=== PATIENT | male | born 1985 | race Caucasian/White ===

== ENCOUNTER 2024-06-27 10:32 | Outpatient (CLI) | payer OTHER, SELFPAY ==
--- NOTE | 2024-06-27 10:42 | ECG_ITS ---
Test Date: 2024-06-27 10:57:50 Measurements Intervals [place] Rate: 96 P: 42 MA: 149 QRS: 32 QRSD: 98 T: 29 QT: 349 QTc: 441 Interpretive Statements SINUS RHYTHM No previous ECG available for comparison Electronically Signed On 06-28-2024 14:20:00 CDT by Terry Costa M.D.
== END 2024-06-27 10:33 | disposition home or self-care (01) ==
PROVIDERS: Visit Provider Surgery
DX: Z01.818 Encounter for other preprocedural examination (principal); I10 Essential (primary) hypertension
CPT/HCPCS: 36415; 86850; 86900; 86901; 93005

== ENCOUNTER 2024-07-03 01:49 | Day surgery (SDC) | payer OTHER, SELFPAY ==
--- NOTE | 2024-06-25 16:32 | SUR.PREOP ---
Report to the Outpatient Waiting Room, entrance under the green pavilion located off [facility], at time ___0800____ on date ____07/03/24___. Planned Procedure Time: ____999____. Time changes happen often and if your time is changed the preop area will call you the afternoon before. - You and your visitor will be asked to self-screen and do not enter if you have any COVID symptoms. - A mask is optional within the hospital at this time. Patients may have clear liquids (water, carbonated beverages, clear teas, apple juice) until 3 hours prior to surgery with a maximum of 20 ounces. - NO CLEAR LIQUIDS AFTER 0700 - No food from midnight until time of surgery - Infants may have breast milk until 4 hours before surgery, infant formula 6 hours prior to surgery. - Children will be allowed to drink immediately following surgery. If applicable, please bring a bottle or sippy cup to assist with drinking. Juice, water, soda, and popsicles are readily available. For infants on formula, please bring formula the day of surgery. Pacifiers are allowed. Take the following medications with a SIP of water the morning of surgery: LEXAPRO, AMLODIPINE DO NOT STOP ANY OF YOUR OTHER PRESCRIPTION MEDICATIONS PRIOR TO SURGERY ?EXCEPT THE FOLLOWING Medications to discontinue per physician N/A Date to take last dose Please no make-up, nail serbian, hairspray, perfume, deodorant, or body powder the day of surgery. No jewelry (including any body piercings) or valuables the day of surgery, leave them at home. Please take a shower or bath the night before, or the morning of, surgery with an antibacterial soap. Wear comfortable, loose fitting clothing. Children are encouraged to wear pajamas. - Jewelry must be removed prior to entering the operating room. Rings and piercings that are not removed may be cut off. - The hospital will not accept responsibility for valuables. - Please leave all valuables, including medications, at home the day of surgery. If you are going home after surgery, a licensed fleet driver must drive you home. - NO public transportation without another adult if you receive anesthesia. - We recommend that an adult stay with you for 24 hours following discharge. - We also recommend that you do not drive, make important decision, drink alcoholic beverages, or take any drugs that were not prescribed by your health care provider for at least 24 hours after your discharge time. For Pediatric surgeries, we recommend two adults accompany the child home. Follow any additional instructions given to you from your surgeon. If you or anyone in your household have experienced Covid symptoms in the past week, please notify your surgeon or the nurse liaison at the phone number below for possible testing. Telephone instructions given to NOEMI CALDERÓN and asked if any additional questions and then verbalized understanding. Patient advised to call surgeon office or pre surgery nurse liaison [phone] if any additional questions.
[2024-06-25 16:44] VITALS: BMI 29.9
[2024-07-03] VITALS (16 sets, daily range): BP systolic 105–163; BP diastolic 63–95; PULSE 60–117; RESP 12–20; TEMP 36.3–37.9; O2SAT 97–100
[2024-07-03] MEDS: KETOROLAC 15 MG/ML VIAL (*BKC) IV PUSH ×2 (09:00→14:12)
[2024-07-03] MEDS: LACTATED RINGERS 1,000 ML 30 ML IV CONT ×2 (09:00→12:03)
[2024-07-03] MEDS: ACETAMINOPHEN 500 MG TABLET 1000 MG PO (09:00)
--- NOTE | 2024-07-03 10:09 | WPDANESEPPF ---
Anes - Initial Pre Proc Eval Procedure: Operation Date: 07/03/24 10:00 Proposed Procedures p Laparoscopic Left Inguinal Hernia Repair with Mesh, Davinci Assisted - Gm Clemons DO Date/Time: 07/03/24 10:09 Surgeon: Gm Clemons DO Pre Op Diagnosis: Lt Ing Hernia Patient Data Age: 38 Gender: M Height: 1.91 m Weight: 109.6 kg Last Vital Signs Temp 97.4 F L 07/03/24 09:00 Pulse 91 07/03/24 09:00 Resp 14 07/03/24 09:00 BP 163/83 H 07/03/24 09:00 Pulse Ox 100 07/03/24 09:00 O2 Del Method Room Air 07/03/24 09:00 Allergies Allergy/AdvReac Type Severity Reaction Status Date / Time basil Allergy Severe Anaphylaxis Verified 07/03/24 09:30 Home Medications Medication Instructions Recorded Confirmed Type escitalopram oxalate 20 mg tablet 20 mg PO DAILY 06/15/24 06/25/24 History amlodipine 5 mg tablet 5 mg PO DAILY 06/25/24 06/25/24 History Patient hx anesthesia problems: none Family hx anesthesia problems: none Results Review: All pre-operative results and documents have been reviewed as part of the pre-operative evaluation. FORMERLY [facility] Surgical History Surgical History Hx of rotator cuff surgery Family History Family History Mother Hypertension Father Hypertension Social History Social History Years smoked: 4 Smoking status: Former smoker Tobacco type: cigarettes Additional smoking assessment comments: STOPPED CIGARETTES 2021 Alcohol intake: current Drinks per week: 12 Substance use type: marijuana Other substance usage details: DAILY Living arrangements: with family Spiritual care concerns: No Anes - Eval Final PreProcedure Day of Procedure 07/03/24 10:09 Patient weight: obese Heart: regular rate and rhythm Lungs: clear to auscultation Airway: Mallampati scale class II Neurological: alert and oriented Last oral intake: >/= 8 hours ASA classification: II Emergent: no Anesthetic plan: proceed Anesthesia type and monitoring: general ETT and standard monitoring Results Review: All pre-operative results and documents have been reviewed as part of the pre-operative evaluation. HTN, home bps 120-130 systolic per pt report. Pt drinks ETOH several times weekly, daily marijuana, not this am. Informed Consent: The patient's anesthetic plan and its attendant risks and benefits were discussed with the patient/family/POA. Questions were solicited and answers provided to the satisfaction of the patient/family/POA.
--- NOTE | 2024-07-03 10:22 | WPDHPUPDATE1 ---
History and Physical Update Update Date/Time: 07/03/24 10:22 History and Physical has been reviewed, including an updated exam of the patient. There are NO changes in the patient's condition. Risks, benefits, and alternatives have been discussed and questions answered. Patient agrees to proceed with procedure.
[2024-07-03] MEDS: ceFAZolin 2 GM/D5W 50 ML 2 GM/50 ML BAG IVPB (10:40)
[2024-07-03] MEDS: BUPIVACAINE/EPINEPHRINE 0.5% 50 ML VIAL 30 ML INFILTRATE (11:28)
--- NOTE | 2024-07-03 12:00 | W.PM.PROC2 ---
Procedure Note - Detailed Date of Procedure 07/03/24 Pre-op Diagnosis Lt Ing Hernia Post-op Diagnosis Same (Small indirect left inguinal hernia) Procedure Performed Laparoscopic left inguinal hernia repair with mesh, da Yanira assisted Surgeon Gm Clemons DO Anesthesia General and Local (0.5% bupivacaine with epinephrine) Indications This is a 38-year-old man who presents with left groin pain that he has been experiencing for the past 3-4 months. He had ultrasound done which showed evidence of a small fat containing left inguinal hernia. He was found to have a small reducible left inguinal hernia on exam. This discussions were made with the patient about treatment options and decision was made to proceed with robotic assisted laparoscopic left inguinal hernia repair with mesh. Findings Laparoscopic left inguinal hernia repair was performed. The patient was found to have a small indirect left inguinal hernia and there was a small cord lipoma going up into the hernia defect. The hernia sac was reduced as well as the cord lipoma. A robotic transabdominal preperitoneal approach was utilized for repair. Once a wide enough preperitoneal pocket was created I then placed a large left 3DMax mid mesh overlying the entire left myopectineal orifice. No specimens were obtained for pathology. Description of Procedure Procedure as well as risks, benefits, and alternatives were discussed with the patient. Written consent was obtained and placed in chart prior to procedure. Patient was brought back to surgical suite. He was placed supine on operating table. Time-out was done to confirm patient and procedure. He was then intubated by Anesthesia Department. His abdomen was prepped and draped in sterile fashion using chlorhexidine prep. 0.5% bupivacaine with epinephrine was infiltrated at each location for incision. An 8 mm incision was made in the left lateral abdomen, and a 5 mm Optiview trocar was advanced through the abdominal layers under direct visualization. Once inside the abdominal cavity, carbon dioxide insufflation was used to create a pneumoperitoneum. A camera was inserted and the abdominal cavity was inspected. The patient was placed in slight Trendelenburg position. An 8 millimeter incision was made on the right lateral abdomen and an 8 millimeter trocar was inserted under direct visualization. Another 8 millimeter incision was made just superior to the umbilicus and an 8 millimeter trocar was inserted under direct visualization. The 5 mm port was then removed and this was replaced with another 8 mm robotic port. The robotic arms were brought up to the patient's bedside and secured to the ports. The camera and instruments were inserted. I then moved over to the robotic console and took control of the camera and instruments. After careful inspection of the abdominal cavity, I began scoring the peritoneum along the left lower quadrant using scissors with electrocautery. The preperitoneal plane was entered and this was carefully dissected caudally along the inferior epigastric vessels. Careful dissection with scissors with electrocautery and blunt dissection was used to continue this dissection. I dissected far enough laterally to allow for mesh placement, and also dissected medially to identify the pubic arch and Hung's ligament. The hernia sac was identified and carefully dissected posteriorly. The cord contents were also identified and the peritoneum was carefully dissected far enough posteriorly to allow for mesh placement. Once an adequate pocket was created, I then placed the mesh within the preperitoneal pocket and carefully unfolded it. The mesh was centered on the hernia defect with adequate overlap circumferentially. The inferior edge of the mesh was inspected to ensure that it was far enough away from the peritoneal edge. The mesh appeared in proper position overlying the entire myopectineal orifice. The mesh was secured using 3-0
[2024-07-03] MEDS: fentaNYL CITRATE INJ (*CRX) 100 MCG/2 ML VIAL 25 MCG IV PUSH ×8 (12:39→12:53)
[2024-07-03] MEDS: HYDROmorphone HCL INJ (*CRX) 1 MG/ML SYR 0.25 MG IV PUSH ×4 (12:56→13:08)
[2024-07-03] MEDS: diazePAM INJ (*CRX) 10 MG/2 ML SYRINGE 2 MG IV PUSH ×2 (13:13→13:21)
--- NOTE | 2024-07-03 13:15 | SUR.PHASEI ---
1309: Dr Berry notified of uncontrolled pain with ordered medications. See new orders for pain control. Dr Berry stated he would touch base with Dr. Clemons regarding uncontrolled pain.
--- NOTE | 2024-07-03 13:25 | SUR.PHASEI ---
Dr. Berry at bedside to assess patient. No acute concerns noted
--- NOTE | 2024-07-03 14:35 | SUR.PHASEI ---
Dr Clemons at bedside to assess patient's persistent pain. Per MD, no concerns at this time, okay to move patient to outpatient area.
[2024-07-03] MEDS: oxyCODONE HCL (*CRX) 5 MG TAB IR PO (14:57)
== END 2024-07-03 15:30 | disposition home or self-care (01) ==
PROVIDERS: Visit Provider Surgery
PROC: 8E0Y4CZ Robotic Assisted Procedure of Lower Extremity, Percutaneous Endoscopic Approach (ICD-10-PCS; CPT 49650; principal; 2024-07-03 10:00)
DX: K40.90 Unilateral inguinal hernia, without obstruction or gangrene, not specified as recurrent (principal); Z87.891 Personal history of nicotine dependence; G89.29 Other chronic pain; M54.50 Low back pain, unspecified
CPT/HCPCS: 49650; S2900; 36415; 86850; 86900; 86901; 93005; A9270; C1781; J0690; J1100; J1170; J1885; J2250; J2405; J2704; J3010; J3360; J7030; J7120